=== PATIENT | female | born 1955 | race Native Hawaiian/Other Pacific Islander ===

== ENCOUNTER 2025-01-14 16:39 | Emergency (ER) | payer OTHER ==
[2025-01-14] MEDS ORDERED: Dexamethasone 10 MG/ML VIAL ONE (17:15)
== END 2025-01-14 18:08 | disposition home or self-care (01) ==
LOC: CSHERS 16:39
DX: J44.1 Chronic obstructive pulmonary disease with (acute) exacerbation (principal); I10 Essential (primary) hypertension; E78.5 Hyperlipidemia, unspecified
CPT/HCPCS: 71045; 93005; 94640; 94760; J1100; 96372; J7620

== ENCOUNTER 2025-03-03 21:14 | Emergency (ER) | payer OTHER ==
[2025-03-03] MEDS ORDERED: Ketorolac Tromethamine 30 MG (1 mL) VIAL ONE (21:36)
[2025-03-03 21:54] LABS: #Basophils 0.13 10x3/uL (0.0-0.2); #Eosinophils 2.55 10x3/uL (0.0-0.5); #Monocytes 0.87 10x3/uL (0.0-1.1); #Neutrophils 7.99 10x3/uL (1.5-8.4); %Basophils 0.9 % (0.0-2.0); %Eosinophils 18.4 % (0.0-6.0); %Lymphocytes 16.6 % (18.0-47.0); %Monocytes 6.3 % (0.0-10.0); %Neutrophils 57.6 % (40.0-75.0); Hematocrit 41.1 % (34.9-44.5); Hemoglobin 13.2 g/dL (12.0-15.5); Mean Corpuscular Hemoglobin 29.9 pg (27.0-33.0); Mean Corpuscular Volume 93.0 fL (81.6-98.3); Platelet Count 296 10x3/uL (150-450); Red Blood Cell (RBC) Count 4.42 10x6/uL (3.90-5.03); White Blood Cell (WBC) Count 13.88 10x3/uL (3.5-10.5)
[2025-03-03 22:05] LABS: ALT (SGPT) 13 U/L (Less than 34); AST (SGOT) 25 U/L (11-34); Albumin 4.1 g/dL (3.1-4.5); Alkaline Phosphatase 75 U/L (40-110); Anion Gap 16 mmol/L (10-20); BUN (Urea Nitrogen) 28 mg/dL (9.8-20.1); Bilirubin, Total 0.3 mg/dL (0.3-1.2); Calc. Creatinine Clearance 0 mL/min (70-130); Calcium 9.1 mg/dL (7.8-10.44); Carbon Dioxide 21 mmol/L (23-31); Chloride 109 mmol/L (98-107); Globulin 3.6 g/dL (2.4-3.5); Glucose 103 mg/dL (80-115); Potassium 4.6 mmol/L (3.5-5.1); Sodium 141 mmol/L (136-145)
[2025-03-03 22:11] LABS: Troponin I 0.011 ng/mL (< 0.028)
[2025-03-03] MEDS ORDERED: Acetaminophen 500 MG TAB ONE (23:29)
[2025-03-03] MEDS ORDERED: Albuterol 2.5 MG (3 mL) NEB ONE (23:32)
[2025-03-04 01:04] LABS: Actual Bicarbonate (HCO3v) 20.3 mEq/L (22-28); Analyzer IN Cardio CS ER; Base Excess -7.1 mEq/L (-2 - +2); Calcium, Ionized (venous) 1.14 mmol/L (1.16-1.32); Chloride (VBG) 109 mmol/L (98-106); Hematocrit-VBG 41 % (36.0-47.0); Hemoglobin (Hb) 14.0 g/dL (11.7-16.1); Potassium (VBG) 4.32 mmol/L (3.70-5.30); Puncture Site Other Site; RapidComm Collect By lab; Sodium 141 mmol/L (133-146)
[2025-03-04 01:17] LABS: Troponin I Less than 0.010 ng/mL (< 0.028)
== END 2025-03-04 01:30 | disposition home or self-care (01) ==
LOC: CSHERS 21:14
DX: J44.1 Chronic obstructive pulmonary disease with (acute) exacerbation (principal); I12.9 Hypertensive chronic kidney disease with stage 1 through stage 4 chronic kidney disease, or unspecified chronic kidney disease; E11.22 Type 2 diabetes mellitus with diabetic chronic kidney disease; N18.9 Chronic kidney disease, unspecified; I25.10 Atherosclerotic heart disease of native coronary artery without angina pectoris
CPT/HCPCS: 71045; 80053; 82805; 84484; 85025; 93005; 94640; 94760; 96374; 96375; 99285; J1885; J2919; J7611

== ENCOUNTER 2025-03-19 08:53 | Emergency (ER) | payer OTHER ==
[2025-03-19 09:26] LABS: #Basophils 0.06 10x3/uL (0.0-0.2); #Eosinophils 1.51 10x3/uL (0.0-0.5); #Monocytes 0.61 10x3/uL (0.0-1.1); #Neutrophils 6.11 10x3/uL (1.5-8.4); %Basophils 0.6 % (0.0-2.0); %Eosinophils 15.6 % (0.0-6.0); %Lymphocytes 13.9 % (18.0-47.0); %Monocytes 6.3 % (0.0-10.0); %Neutrophils 63.3 % (40.0-75.0); Hematocrit 40.2 % (34.9-44.5); Hemoglobin 12.9 g/dL (12.0-15.5); Mean Corpuscular Hemoglobin 29.2 pg (27.0-33.0); Mean Corpuscular Volume 91.0 fL (81.6-98.3); Platelet Count 278 10x3/uL (150-450); Red Blood Cell (RBC) Count 4.42 10x6/uL (3.90-5.03); White Blood Cell (WBC) Count 9.66 10x3/uL (3.5-10.5)
[2025-03-19 09:44] LABS: Troponin I 0.011 ng/mL (< 0.028)
[2025-03-19 09:45] LABS: ALT (SGPT) 10 U/L (Less than 34); AST (SGOT) 17 U/L (11-34); Albumin 3.6 g/dL (3.1-4.5); Alkaline Phosphatase 81 U/L (40-110); Anion Gap 14 mmol/L (10-20); BUN (Urea Nitrogen) 26 mg/dL (9.8-20.1); Bilirubin, Total 0.4 mg/dL (0.3-1.2); Calc. Creatinine Clearance 0 mL/min (70-130); Calcium 8.6 mg/dL (7.8-10.44); Carbon Dioxide 22 mmol/L (23-31); Chloride 109 mmol/L (98-107); Globulin 3.6 g/dL (2.4-3.5); Glucose 108 mg/dL (80-115); Potassium 4.6 mmol/L (3.5-5.1); Sodium 140 mmol/L (136-145)
== END 2025-03-19 11:10 | disposition home or self-care (01) ==
LOC: CSHERS 08:53
DX: J44.9 Chronic obstructive pulmonary disease, unspecified (principal); N18.9 Chronic kidney disease, unspecified; I12.9 Hypertensive chronic kidney disease with stage 1 through stage 4 chronic kidney disease, or unspecified chronic kidney disease; E11.22 Type 2 diabetes mellitus with diabetic chronic kidney disease; I25.10 Atherosclerotic heart disease of native coronary artery without angina pectoris; Z87.891 Personal history of nicotine dependence
CPT/HCPCS: 71045; 80053; 84484; 85025; 93005; 94760; J2919; 96374